=== PATIENT | male | born 1935 | race Caucasian/White ===

== ENCOUNTER 2016-10-13 16:13 | Emergency (ER) | payer OTHER ==
[~2016-10-13] VITALS: Ht 172.7 cm; Wt 97.1 kg
[2016-10-13 16:32] VITALS: BP_SYST 144
[2016-10-13] MEDS: ACETAMINOPHEN 500 MG TABLET PO ONE (17:40)
[2016-10-13] MEDS: BACITRACIN 1 GM OINT TP ONE (18:01)
[2016-10-13] MEDS ORDERED: BACITRACIN 1 GM OINT TP ONE (18:03)
[2016-10-13 19:30] VITALS: BP_SYST 141
== END 2016-10-13 19:30 | disposition home or self-care (01) ==
LOC: SED 16:13
DX: S62.316A Displaced fracture of base of fifth metacarpal bone, right hand, initial encounter for closed fracture (principal); S22.31XA Fracture of one rib, right side, initial encounter for closed fracture; S00.211A Abrasion of right eyelid and periocular area, initial encounter; S00.81XA Abrasion of other part of head, initial encounter; S80.211A Abrasion, right knee, initial encounter; I10 Essential (primary) hypertension; R51 Headache; W10.8XXA Fall (on) (from) other stairs and steps, initial encounter; Y93.01 Activity, walking, marching and hiking; Y92.89 Other specified places as the place of occurrence of the external cause; Y99.8 Other external cause status
CPT/HCPCS: 70450-TC; 71100; 73564; 99284